=== PATIENT | female | born 1965 | race Two or more races ===

== ENCOUNTER 2020-11-18 06:59 | Emergency (ER) | payer MEDICAID ==
[~2020-11-18] VITALS: Ht 165.1 cm; Wt 87.5 kg
[2020-11-18] MEDS ORDERED: ATEN-73 PO (07:05)
[2020-11-18 09:02] LABS: BASOPHILS % (AUTO) 0.9 % (0.0-2.0); EOSINOPHILS % (AUTO) 1.2 % (1.0-6.0); HEMATOCRIT 38.9 % (36-46); HEMOGLOBIN 13.3 g/dL (12.0-16.0); LYMPHOCYTES # (AUTO) 2.3 K/uL (1.0-4.8); LYMPHOCYTES % (AUTO) 34.2 % (22.0-44.0); MEAN CORPUSCULAR HGB CONC 34.2 G/dL (31.0-37.0); MEAN CORPUSCULAR VOLUME 85 fL (80-100); MONOCYTES # (AUTO) 0.5 K/uL (0.1-1.0); MONOCYTES % (AUTO) 7.3 % (2.0-9.0); NEUTROPHILS # (AUTO) 3.8 K/uL (1.8-7.7); NEUTROPHILS % (AUTO) 56.4 % (40.0-70.0); PLATELET COUNT (AUTO) 289 K/uL (150-450); RED CELL DISTRIBUTION WIDTH 13.3 % (11.5-14.5)
[2020-11-18 09:28] LABS: ALANINE AMINOTRANSFERASE 32 U/L (12-78); ALBUMIN 3.7 g/dL (3.4-5.0); ALKALINE PHOSPHATASE 76 U/L (46-116); ANION GAP 9 mmol/L (8-16); ASPARTATE AMINOTRANSFERASE 23 U/L (15-37); BILIRUBIN,TOTAL 0.6 mg/dL (0.1-1.0); CALCIUM, TOTAL 9.5 mg/dL (8.8-10.5); CARBON DIOXIDE 32 mmol/L (22-29); CHLORIDE 99 mmol/L (98-107); GLOMERULAR FILTR. RATE CALC > 60 mL/min (>60); GLUCOSE,RANDOM 89 mg/dL (70-110); LIPASE 111 U/L (73-393); SODIUM SERUM 140 mmol/L (136-145); TOTAL PROTEIN, SERUM 7.7 g/dL (6.4-8.2); UREA NITROGEN, BLOOD 23 mg/dL (7-18)
[2020-11-18] MEDS ORDERED: ASPIRIN 81 MG CHEWABLE TABLET PO ONE (09:30)
[2020-11-18] MEDS ORDERED: NITROGLYCERIN 2% (1 GM=INCH) PACKET TP ONE (09:30)
[2020-11-18] MEDS ORDERED: POTASSIUM CHLORIDE 20 MEQ ER TABLET PO ONE (12:15)
[2020-11-18 14:15] VITALS: BP 140/76
== END 2020-11-18 14:20 | disposition home or self-care (01) ==
LOC: EMS 06:59
DX: R07.9 Chest pain, unspecified (principal); I10 Essential (primary) hypertension; Z88.8 Allergy status to other drugs, medicaments and biological substances
CPT/HCPCS: 85379; 93005; 99285; 36415-L1; 36415-TC; 71045-TC

== ENCOUNTER 2025-08-23 12:07 | Inpatient (IN) | payer MEDICAID ==
[~2025-08-23] VITALS: Ht 162.6 cm; Wt 68.0 kg
[~2025-08-23 12:07] MED LIST: ATEN-73 PO
[2025-08-23 12:32] LABS: PLATELET COUNT (AUTO) 304 K/uL (150-450); RED BLOOD CELL COUNT(AUTO) 4.57 MIL/uL (4.00-5.20); RED CELL DISTRIBUTION WIDTH 13.2 % (11.5-14.5); WHITE BLOOD COUNT (AUTO) 7.5 K/uL (4.5-11.0)
[2025-08-23] MEDS ORDERED: CHL25 PO (12:36)
[2025-08-23] MEDS ORDERED: SERT-162 PO (12:36)
[2025-08-23] MEDS ORDERED: HYDR10TA31 PO (12:36)
[2025-08-23] MEDS ORDERED: ATOR40TA28 PO (12:36)
[2025-08-23] MEDS ORDERED: LORA10TA7 PO (12:36)
[2025-08-23] MEDS ORDERED: DULO30CA62 PO (12:36)
[2025-08-23 12:38] LABS: CALCIUM, TOTAL 8.7 mg/dL (8.8-10.5); CREATININE 0.72 mg/dL (0.60-1.30); GLOMERULAR FILTR. RATE CALC > 60 mL/min (>60); GLUCOSE,RANDOM 112 mg/dL (70-110); SODIUM SERUM 140 mmol/L (136-145); UREA NITROGEN, BLOOD 14 mg/dL (7-18)
[2025-08-23 12:45] LABS: ASPARTATE AMINOTRANSFERASE 24 U/L (15-37); TOTAL PROTEIN, SERUM 7.1 g/dL (6.4-8.2)
[2025-08-23 12:57] LABS: ALCOHOL, BLOOD (SERUM) < 3 mg/dL (0-10)
[2025-08-23 13:03] LABS: COVID AG,FIA SOURCE NASAL SWAB
[2025-08-23 13:27] LABS: PH,URINE DRUG SCREEN 7.0 (5.0-8.0)
[2025-08-23] MEDS: POTASSIUM CHLORIDE 20 MEQ ER TABLET PO ONE (13:27)
[2025-08-23] MEDS: POTASSIUM CHL 10 MEQ/WATER 50 ML IV ONE (13:27)
[2025-08-23 13:37] LABS: AMPHET/METH SCREEN,URINE NEGATIVE (NEGATIVE); BARBITURATE SCREEN, URINE NEGATIVE (NEGATIVE); CANNABINOID SCREEN,URINE NEGATIVE (NEGATIVE); COCAINE SCREEN,URINE NEGATIVE (NEGATIVE); METHADONE SCREEN, URINE NEGATIVE (NEGATIVE)
[2025-08-23 13:53] LABS: ALCOHOL, URINE DRUG SCREEN NEGATIVE (NEGATIVE)
[2025-08-23 14:07] LABS: SARS-COV2 (COVID) ANTIGEN,FIA Negative (Negative)
[2025-08-23 16:55] LABS: APPEARANCE,URINE CLEAR (CLEAR); GLUCOSE, URINE (UA) NEGATIVE (NEGATIVE); LEUKOCYTE ESTERASE ,URINE NEGATIVE (NEGATIVE); NITRATE,URINE NEGATIVE (NEGATIVE); OCCULT BLOOD,URINE NEGATIVE (NEGATIVE); SPECIFIC GRAVITIY, URINE 1.008 (1.003-1.030)
[2025-08-23 23:10] VITALS: BP 140/90; PULSE 85; RESP 20; TEMP 97.2; O2SAT 97
[2025-08-23 23:35] VITALS: BP 140/90; PULSE 58; RESP 20; TEMP 98.8; O2SAT 97
[2025-08-24] MEDS ORDERED: LOPERAMIDE HCL 2 MG CAPSULE PO PRN (06:45)
[2025-08-24] MEDS ORDERED: NICOTINE 14 MG/24 HOUR PATCH TD PRN (06:45)
[2025-08-24] MEDS ORDERED: DOCUSATE SODIUM 100 MG CAPSULE PO PRN (06:45)
[2025-08-24] MEDS ORDERED: MAGNESIUM HYDROXIDE SUSPENSION 30 ML UDCUP PO PRN (06:45)
[2025-08-24] MEDS ORDERED: ACETAMINOPHEN 325 MG TABLET PO PRN (06:45)
[2025-08-24] MEDS ORDERED: IBUPROFEN 400 MG TABLET PO PRN (06:45)
[2025-08-24] MEDS ORDERED: PETROLATUM,WHITE 28 GM JELLY TP PRN (06:45)
[2025-08-24] MEDS ORDERED: ALBUTEROL SULFATE HFA 90 MCG/PUFF 8 GM INHALER IH PRN (06:45)
[2025-08-24] MEDS ORDERED: GuaiFENesin/D-METHORPHAN [SUGAR-FREE] 200-20MG/10 ML SYRUP UDCUP PO PRN (06:45)
[2025-08-24] MEDS ORDERED: MAG HYDROX/ALUMINUM HYD/SIMETH ES 30 ML SUSPENSION UDCUP PO PRN (06:45)
[2025-08-24] MEDS: CHLORTHALIDONE 25 MG TABLET PO SCH (09:00)
[2025-08-24 09:23] VITALS: BP 128/93; PULSE 73; RESP 18; TEMP 98.2; O2SAT 98
[2025-08-24 10:00] VITALS: BP 109/75; PULSE 69; RESP 18; O2SAT 99
[2025-08-24 16:41] VITALS: BP 133/96; PULSE 86; RESP 18; TEMP 98; O2SAT 97
[2025-08-24] MEDS: ONDANSETRON 4 MG TABLET PO PRN (18:02)
[2025-08-24] MEDS: ATORVASTATIN CALCIUM 40 MG TABLET PO SCH (20:48)
[2025-08-24] MEDS: SERTRALINE HCL 100 MG TABLET PO SCH (20:56)
[2025-08-25 09:46] LABS: CHOL/HDL RATIO 2.8 (3.9-5.7); LDL CHOL (CALC.) 85.0 mg/dL (0-130)
[2025-08-25 09:47] VITALS: BP_SYST 123; BP_SYST 128; BP_SYST 130; BP_DIAS 85; PULSE 68; RESP 18; TEMP 97.9; O2SAT 98
[2025-08-25] MEDS: POTASSIUM CHLORIDE 20 MEQ ER TABLET PO ONE (16:25)
[2025-08-25 19:50] VITALS: BP 133/96; PULSE 72; RESP 20; TEMP 98.5; O2SAT 98
[2025-08-26 10:54] VITALS: BP 105/89; PULSE 87; RESP 16; TEMP 97.4; O2SAT 98
[2025-08-27] MEDS ORDERED: CHL25 PO (06:09)
[2025-08-27] MEDS ORDERED: ATOR40TA28 PO (06:09)
[2025-08-27] MEDS ORDERED: SERT-162 PO (06:09)
[2025-08-27] MEDS ORDERED: HYDR10TA31 PO (06:09)
[2025-08-27] MEDS ORDERED: ATEN-73 PO (06:09)
== END 2025-08-26 14:37 | disposition home or self-care (01) | DRG 751 ==
LOC: EMS 12:08 → 3EI 21:22
PROVIDERS: ADMIT Psychiatry & Neurology Psychiatry; ATTEND Psychiatry & Neurology Psychiatry
PROC: GZHZZZZ Group Psychotherapy (ICD-10-PCS; principal; 2025-08-23)
PROC: GZ51ZZZ Individual Psychotherapy, Behavioral (ICD-10-PCS; 2025-08-23)
DX: F33.2 Major depressive disorder, recurrent severe without psychotic features (principal); R45.851 Suicidal ideations; I10 Essential (primary) hypertension; E78.5 Hyperlipidemia, unspecified; T43.222A Poisoning by selective serotonin reuptake inhibitors, intentional self-harm, initial encounter; Z20.822 Contact with and (suspected) exposure to COVID-19; E87.6 Hypokalemia; J30.9 Allergic rhinitis, unspecified; Y92.89 Other specified places as the place of occurrence of the external cause; Z79.899 Other long term (current) drug therapy; Z91.51 Personal history of suicidal behavior
CPT/HCPCS: 80048; 80061; 80076; 80307; 81003; 83036; 83735; 84132; 84443; 85025; 93005; 99285; G0480; G0481; J3480; Q0162